=== PATIENT | female | born 1935 | race Hispanic/Latino ===

== ENCOUNTER → 2018-06-08 | Outpatient (CLI) | payer OTHER ==
[~2018-06-08] MED LIST: ALENDRONATE; ASPIRIN EC81 MG PO; LOSARTAN POTASS25 MG; PRAVASTATIN SOD20 MG
--- NOTE | 2018-06-11 15:32 | Diagnostic Imaging Report ---
Exam: Abdominal film Clinical History: Renal stones Comparison: None. DISCUSSION: No suspicious calcifications project over the renal shadows or expected ureteral courses. Bowel gas pattern is nonobstructive. No mass effect or organomegaly. Regional skeletal structures are intact. Diffuse osteopenia. IMPRESSION: No plain film evidence of urolithiasis. Signed by: Dr. Cody Andujar M.D. on 06/11/2018 3:28 PM
== END ==
LOC: RAD 10:26
PROVIDERS: ATTEND Urology
DX: N20.0 Calculus of kidney (principal)
CPT/HCPCS: 74018

== ENCOUNTER 2022-04-06 13:26 | Emergency (ER) | payer OTHER ==
[~2022-04-06] VITALS: Ht 149.9 cm; Wt 68.0 kg
[2022-04-06] MEDS ORDERED: ONDANSETRON HCL INJ 2MG/ML 2ML 2 MG/ML VIAL IV STA (13:59)
[2022-04-06] MEDS ORDERED: CLONIDINE HCL 0.1 MG TAB PO ONE (14:00)
[2022-04-06] MEDS ORDERED: ACETAMINOPHEN 325 MG TAB PO ONE (14:00)
[2022-04-06] MEDS ORDERED: LOSARTAN POTASS25 MG PO (14:38)
[2022-04-06] MEDS ORDERED: AMLODIPINE BESYL5 MG PO (14:38)
[2022-04-06] MEDS ORDERED: ASPIRIN EC81 MG PO (14:38)
== END 2022-04-06 14:55 | disposition home or self-care (01) ==
LOC: FSED 13:35
DX: I16.0 Hypertensive urgency (principal); R42 Dizziness and giddiness; R51.9 Headache, unspecified; I10 Essential (primary) hypertension; R94.31 Abnormal electrocardiogram [ECG] [EKG]; F17.210 Nicotine dependence, cigarettes, uncomplicated
CPT/HCPCS: 70450; 71045; 93005; 99284; J2405